=== PATIENT | female | born 1935 ===

== ENCOUNTER 2019-04-22 09:28 | Outpatient (CLI) | payer OTHER ==
[~2019-04-22 09:28] MED LIST: ALL DAY ALLERGY10 M3; ASPIR 8181 MG; HYZAAR 100-121 UDTAB; LOTRIMIN10 ML; NAMENDA10 MG; PEPCID AC20 MG PO; URIN D.S. TABL1 EACH PO
== END 2019-04-22 09:57 | disposition home or self-care (01) ==
LOC: SONOGRAMA 09:28 → MAMO-SONO 10:15
DX: R10.84 Generalized abdominal pain (principal)

== ENCOUNTER 2019-04-22 10:18 | Outpatient (CLI) | payer OTHER | END 2019-04-22 10:32 | disposition home or self-care (01) | LOC: LAB 10:18 | DX: D64.89 Other specified anemias (principal); N39.0 Urinary tract infection, site not specified; E03.8 Other specified hypothyroidism; E11.8 Type 2 diabetes mellitus with unspecified complications; E78.49 Other hyperlipidemia; E55.9 Vitamin D deficiency, unspecified; I48.91 Unspecified atrial fibrillation ==